=== PATIENT | male | born 1965 | race Caucasian/White ===

== ENCOUNTER 2017-09-20 08:47 | Inpatient (IN) | payer OTHER ==
[2017-09-20 09:37] VITALS: BMI 27.1
--- NOTE | 2017-09-20 12:01 | HP ---
COWS - Scale Resting Pulse: 0= ME 80 or Below Sweatin= Chills/Flushing Restless Observation: 1= Difficult to Sit Still Pupil Size: 1= Pupils >than Normal Bone or Joint Aches: 1= Mild Discomfort Runny Nose/ Eye Tearin= Nasal Congestion GI Upset > 30mins: 2= Nausea/Diarrhea Tremor Observation: 2= Slight Tremor Visible Yawning Observation: 1= 1-2x During Session Anxiety or Irritability: 2=Irritable/Anxious Goose Flesh Skin: 3=Piloerection COWS Score: 15 Admission [facility] Chief Complaint: heroin withdrawal sx Allergies/Adverse Reactions: Allergies Allergy/AdvReac Type Severity Reaction Status Date / Time No Known Allergies Allergy Verified 09/20/17 10:17 History of Present Illness: 51 yo m with h/o opioid use disorder severe, requesting inpateint detoxification from heroin (and street methadone) because of withdrawal sx. no h/o seizures, no DTs, no SI. denies all othere illicit drug use and alcohol. PMHX HTN, asthma, taking medication sas prescrbied, anxiety, depression ad insomnia, HIV+ does not have medication. last took yesterday. reports compliance with teratment thirsty Exam Limitations: No Limitations - Ebola screening Have you traveled outside of the country in the last 21 days: No Have you had contact with anyone from an Ebola affected area: No Have you been sick,other than usual withdrawal symptoms: No - Review of Systems Constitutional: Chills, Diaphoresis, Night Sweats, Changes in sleep, Weight Stable EENT: reports: Tearing, Nose Congestion Respiratory: reports: No Symptoms reported Cardiac: reports: No Symptoms Reported GI: reports: Constipated, Nausea, Poor Appetite, Poor Fluid Intake, Vomiting, Indigestion, Abdominal cramping : reports: No Symptoms Reported Musculoskeletal: reports: No Symptoms Reported Integumentary: reports: Flushing, Sweating Neuro: reports: Numbness, Tingling, Tremors Endocrine: reports: Increased Thirst Hematology: reports: No Symptoms Reported Psychiatric: reports: Judgement Intact, Mood/Affect Appropiate, Orientated x3, Anxious, Depressed, other (omsp,moa) Other Systems: Reviewed and Negative Patient History - Patient Medical History Hx Anemia: No Hx Asthma: Yes (Pt is on MDI for asthma.) Hx Chronic Obstructive Pulmonary Disease (COPD): No Hx Cancer: No Hx Cardiac Disorders: No Hx Congestive Heart Failure: No Hx Hypertension: Yes (on meds.) Hx Hypercholesterolemia: No Hx Pacemaker: No HX Cerebrovascular Accident: No Hx Seizures: No Hx Dementia: No Hx Diabetes: No Hx Gastrointestinal Disorders: No Hx Genitourinary Disorders: No Hx Sexually Transmitted Disorders: No Hx Renal Disease (ESRD): No Hx Depression: No Hx Suicide Attempt: No Hx Schizophrenia: No - Patient Surgical History Past Surgical History: Yes Hx Cholecystectomy: Yes (2013) Anesthesia Reaction: No - PPD History Previous Implant?: Yes Documented Results: Negative w/o proof Implanted On Prior R Admission?: No PPD to be Administered?: Yes - Reproductive History Patient is a Female of Child Bearing Age (11 -55 yrs old): No Patient : No - Smoking Cessation Smoking history: Current every day smoker Have you smoked in the past 12 months: Yes Aproximately how many cigarettes per day: 5 Hx Chewing Tobacco Use: No Initiated information on smoking cessation: Yes 'Breaking Loose' booklet given: 09/20/17 - Substance & Tx. History Hx Alcohol Use: No Hx Substance Use: Yes Substance Use Type: Heroin, Opiates, Prescribed Hx Substance Use Treatment: Yes (last detox [facility] many years ago) - Substances Abused Heroin Route: Inhalation Frequency: Daily Amount used: 20 bags Age of first use: 19 Date of Last Use: 09/19/17 Family Disease History - Family Disease History Family History: Denies Admission Physical Exam BHS - Vital Signs Vital Signs: Vital Signs - 24 hr 09/20/17 09:30 Temperature 96.5 F L Pulse Rate 58 L Respiratory 20 Rate Blood Pressure 131/73 - Physical General Appearance: Yes: Nourished, Appropriately Dressed, Disheveled, Mild Distress, Tremorous, Irritable, Sweating, Anxious HEENTM: Yes: Within Normal Limits, EOMI, Hearing grossly Normal, Normocephalic, Normal Voice, ZOYA, Pharynx Normal, Nasal Congestion, Rhinorrhea Respiratory: Yes: Within Normal Limits, Chest Non-Tender, Lungs Clear, Normal Breath Sounds, No Respiratory Distress, No Accessory Muscle Use Neck: Yes: Within Normal Limits, No masses,lesions,Nodules, Supple, Trachea in good position Breast: Yes: Breast Exam Deferred Cardiology: Yes: Within Normal Limits, Regular Rhythm, Regular Rate, S1, S2 Abdominal: Yes: Within Normal Limits, Normal Bowel Sounds, Non Tender, Flat, Soft, Increased Bowel Sounds Genitourinary: Yes: Within Normal Limits Back: Yes: Within Normal Limits, Normal Inspection Musculoskeletal: Yes: Within Normal Limits, full range of Motion, Gait Steady, Pelvis Stable Extremities: Yes: Within Normal Limits, Normal Capillary Refill, Normal Range of Motion, Non-Tender, Tremors 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 intact, Fully Oriented, Alert, Motor Strength 5/5, Normal Response, Depressed Affect Integumentary: Yes: Normal Color, Warm, Diaphoresis, Moist, Other (poor sking turgor) Lymphatic: Yes: Within Normal Limits - Addiitonal Findings: withdrawal sx, dehydration - Diagnostic (1) Opioid dependence with withdrawal Current Visit: Yes Status: Acute (2) Nicotine dependence Current Visit: Yes Status: Acute (3) Dehydration Current Visit: Yes Status: Acute (4) HIV (human immunodeficiency virus infection) Current Visit: Yes Status: Acute (5) HTN (hypertension) Current Visit: Yes Status: Acute (6) Asthma Current Visit: Yes Status: Acute (7) Insomnia Current Visit: Yes Status: Acute (8) Weight loss Current Visit: Yes Status: Acute Cleared for Admission [facility] - Detox or Rehab [facility] Level of Care: Medically Managed Detox Regimen/Protocol: Methadone [facility] Breath Alcohol Content Breath Alcohol Content: 0 Urine Drug Screen - Results Drug Screen Negative: No Urine Drug Screen Results: OPI-Opiates, MTD-Methadone
[2017-09-20] MEDS ORDERED: ACETAMINOPHEN 325 MG TABLET (FP) PO PRN (12:04)
[2017-09-20] MEDS ORDERED: IBUPROFEN 400 MG TABLET (FP) PO PRN (12:04)
[2017-09-20] MEDS ORDERED: guaiFENesin/D-METHORPHAN HB 10 ML UNIT-DOSE CUPS PO PRN (12:04)
[2017-09-20] MEDS ORDERED: P-EPHED 60MG/TRIPROLIDI 2.5MG TABLET PO PRN (12:04)
[2017-09-20] MEDS ORDERED: hydrOXYzine PAMOATE 50 MG CAPSULE (FP) PO PRN (12:04)
[2017-09-20] MEDS ORDERED: NICOTINE POLACRILEX 2 MG GUM BC PRN (12:04)
[2017-09-20] MEDS ORDERED: MENTHOL/PHENOL 1 EACH UD MM PRN (12:04)
[2017-09-20] MEDS ORDERED: MAG HYDROX/AL HYDROX/SIMETH 30 ML UNIT-DOSE CUP PO PRN (12:04)
[2017-09-20] MEDS ORDERED: MAGNESIUM HYDROX 2400MG/30ML ORAL SUSPENSION 30 ML CUP PO PRN (12:04)
[2017-09-20] MEDS ORDERED: MAGNESIUM CITRATE 300 ML BOTTLE PO PRN (12:04)
[2017-09-20] MEDS ORDERED: ALBUTEROL SO4 18 GM HFA INHALER IH PRN (12:06)
[2017-09-20] MEDS ORDERED: METHADONE HCL 10 MG TABLET (FOR DETOX USE ONLY) PO ONE ×2 (13:00→23:00)
[2017-09-20] MEDS: diazePAM 5 MG TABLET PO PRN (14:08)
[2017-09-20] MEDS: NICOTINE 7 MG/24 HOURS TOPICAL PATCH TD SCH (14:14)
[2017-09-20] MEDS: DOLUTEGRAVIR SODIUM 50 MG TABLET PO SCH (14:52)
[2017-09-20] MEDS: EMTRICITABINE/TENOFOV ALAFENAM (DESCOVY) TABLET PO SCH (14:52)
[2017-09-20] MEDS: NADOLOL 20 MG TABLET (FP) PO SCH (14:53)
--- NOTE | 2017-09-20 15:32 | EKG ---
Test Reason : Blood Pressure : / mmHG Vent. Rate : 054 BPM Atrial Rate : 054 BPM P-R Int : 156 ms QRS Dur : 102 ms QT Int : 462 ms P-R-T Axes : 068 002 015 degrees QTc Int : 438 ms SINUS BRADYCARDIA MINIMAL VOLTAGE CRITERIA FOR LVH, MAY BE NORMAL VARIANT BORDERLINE ECG NO PREVIOUS ECGS AVAILABLE Confirmed by PRESTON LOPES MD ([id number]) on 09/20/2017 3:31:55 PM Referred By: Confirmed By:PRESTON LOPES MD
--- NOTE | 2017-09-20 16:06 | CONSULT ---
[facility] Psychiatric Consult - Data Date of interview: 09/20/17 Admission source: [facility] Identifying data: Patient is a 51 year old single male, father of two, unemployed, receiving food stamps, and currently living with his brother. This is patient's first admission to [facility]. Pt. admitted to for opiate dependence. Substance Abuse History: Following information confirmed with Mr. Orellana: - Smoking Cessation. Smoking history: Current every day smoker. Have you smoked in the past 12 months: Yes. Aproximately how many cigarettes per day: 5. Hx Chewing Tobacco Use: No. Initiated information on smoking cessation: Yes. ' Breaking Loose' booklet given: 09/20/17. - Substance & Tx. History. Hx Alcohol Use: No. Hx Substance Use: Yes. Substance Use Type: Heroin, Opiates, Prescribed. Hx Substance Use Treatment: Yes (last detox [facility] many years ago). - Substances Abused. Heroin. Route: Inhalation. Frequency: Daily. Amount used: 20 bags. Age of first use: 19. Date of Last Use: 09/19/17 Medical History: Asthma, hypertension Psychiatric History: Patient denies h/o psychiatric hospitalizations, outpatient care, and suicide attempts. Physical/Sexual Abuse/Trauma History: Denies. Mental Status Exam - Mental Status Exam Alert and Oriented to: Time, Place, Person Cognitive Function: Good Patient Appearance: Well Groomed Mood: Withdrawn Affect: Mood Congruent Patient Behavior: Fatigued, Cooperative Speech Pattern: Delayed, Slurred Voice Loudness: Moderately Soft/Quiet Thought Process: Goal Oriented Thought Disorder: Not Present Hallucinations: Denies Suicidal Ideation: Denies Homicidal Ideation: Denies Insight/Judgement: Poor Sleep: Fair Appetite: Fair Muscle strength/Tone: Normal Gait/Station: Normal Psychiatric Findings - Problem List ([place] 1, 2,3) (1) Insomnia Current Visit: Yes Status: Acute (2) Nicotine dependence Current Visit: Yes Status: Acute (3) Opioid dependence with withdrawal Current Visit: Yes Status: Acute - Initial Treatment Plan Initial Treatment Plan: Psychoeducation provided. Detoxification in progress. Insomnia will be addressed with Melatonin 5mg. Observation.
[2017-09-20] MEDS: LOPERAMIDE HCL 2 MG CAPSULE PO PRN (18:14)
--- NOTE | 2017-09-20 19:24 | PN ---
S Progress Note Note: Patient with continuos diarrhea, with no relief with immodium. Vital Signs Temperature 97.9 F 09/20/17 14:01 Pulse Rate 63 09/20/17 14:01 Respiratory Rate 18 09/20/17 14:01 Blood Pressure 131/75 09/20/17 14:01 O2 Sat by Pulse Oximetry (%) Plan: Lomotil one dose Increase fluids Continue to monitor
[2017-09-20] MEDS ORDERED: DIPHENOXYLATE 2.5/ATROPINE.025 1 COMBO TABLET PO ONE (19:30)
[2017-09-20 21:59] LABS: URINE APPEARANCE CLEAR; URINE BILIRUBIN NEGATIVE (<2.0 mg/dL); URINE BLOOD 2+ (NEGATIVE); URINE COLOR YELLOW; URINE GLUCOSE (UA) 2+ (NEGATIVE); URINE KETONE NEGATIVE (NEGATIVE); URINE LEUK ESTERASE NEGATIVE (NEGATIVE); URINE NITRITE NEGATIVE (NEGATIVE); URINE UROBILINOGEN 4.0 E.U/dl mg/dL (0.2-1.0)
[2017-09-20 22:00] LABS: URINE PROTEIN 1+ (NEGATIVE)
[2017-09-20 22:04] LABS: URINE MUCUS RARE
[2017-09-20] MEDS: MELATONIN 5 MG TABLETS PO PRN (22:37)
[2017-09-20] MEDS: THIAMINE HCL 100 MG TABLET (FP) PO SCH (22:37)
[2017-09-21] MEDS ORDERED: METHADONE HCL 10 MG TABLET (FOR DETOX USE ONLY) PO ONE (10:00)
[2017-09-21 10:24] LABS: HEMATOCRIT 38.1 % (35.4-49); HEMOGLOBIN 13.4 GM/dL (11.7-16.9); MCH 37.9 pg (25.7-33.7); MCHC 35.1 g/dl (32.0-35.9); MEAN CELL VOLUME 107.8 fl (80-96); MEAN PLT VOLUME 13.2 fl (7.5-11.1); PLATELET COUNT 52 K/MM3 (134-434); RBC 3.53 M/mm3 (4.00-5.60); RDW 15.2 % (11.9-15.9); WHITE BLOOD COUNT 4.9 K/mm3 (4.0-10.0)
[2017-09-21 10:47] LABS: CHLORIDE 112 mmol/L (98-107); POTASSIUM 3.9 mmol/L (3.5-5.1); SODIUM 142 mmol/L (136-145)
[2017-09-21] MEDS: PRENATAL VITAMINS W/ FOLIC ACID TABLET (FP) PO SCH (11:01)
[2017-09-21] MEDS: NICOTINE 7 MG/24 HOURS TOPICAL PATCH TD SCH (11:02)
[2017-09-21] MEDS: NADOLOL 20 MG TABLET (FP) PO SCH (11:02)
[2017-09-21] MEDS: EMTRICITABINE/TENOFOV ALAFENAM (DESCOVY) TABLET PO SCH (11:02)
[2017-09-21] MEDS: DOLUTEGRAVIR SODIUM 50 MG TABLET PO SCH (11:02)
--- NOTE | 2017-09-21 11:15 | PN ---
BHS COWS - Scale Resting Pulse: 0= [place] 80 or Below Sweatin= Chills/Flushing Restless Observation: 3= Extraneous Movement Pupil Size: 1= Pupils >than Normal Bone or Joint Aches: 2= Severe Diffuse Aches Runny Nose/ Eye Tearin= Runny Nose/Eyes GI Upset > 30mins: 3= Vomiting/Diarrhea Tremor Observation of Outstretched Hands: 2= Slight Tremor Visible Yawning Observation: 1= 1-2x During Session Anxiety or Irritability: 2=Irritable/Anxious Goose Flesh Skin: 0=Smooth Skin COWS Score: 17 S Progress Note (SOAP) Subjective: ALERT,IRRITABLE,ANXIOUS,INTERRUPTED SLEEP,TREMOR,PAIN IN THE BODY AND BACK, INTERRUPTED SLEEP Objective: 09/21/17 11:11 Vital Signs Temperature 98.2 F 09/21/17 10:05 Pulse Rate 71 09/21/17 10:05 Respiratory Rate 20 09/21/17 10:05 Blood Pressure 129/65 09/21/17 10:05 O2 Sat by Pulse Oximetry (%) EKG SINUS BRADYCARDIA 54/MIN,LVH NO CHEST PAIN,NO SOB,NO DIZZINESS Laboratory Last Values WBC 4.9 K/mm3 (4.0-10.0) 09/21/17 05:50 RBC 3.53 M/mm3 (4.00-5.60) L 09/21/17 05:50 Hgb 13.4 GM/dL (11.7-16.9) 09/21/17 05:50 Hct 38.1 % (35.4-49) 09/21/17 05:50 MCV 107.8 fl (80-96) H 09/21/17 05:50 MCH 37.9 pg (25.7-33.7) H 09/21/17 05:50 MCHC 35.1 g/dl (32.0-35.9) 09/21/17 05:50 RDW 15.2 % (11.9-15.9) 09/21/17 05:50 Plt Count 52 K/MM3 (134-434) L 09/21/17 05:50 MPV 13.2 fl (7.5-11.1) H 09/21/17 05:50 Urine Color Yellow 09/20/17 21:11 Urine Appearance Clear 09/20/17 21:11 Urine pH 7.0 (5.0-8.0) 09/20/17 21:11 Ur Specific [place] 1.019 (1.001-1.035) 09/20/17 21:11 Urine Protein 1+ (NEGATIVE) H 09/20/17 21:11 Urine Glucose (UA) 2+ (NEGATIVE) H 09/20/17 21:11 Urine Ketones Negative (NEGATIVE) 09/20/17 21:11 Urine Blood 2+ (NEGATIVE) H 09/20/17 21:11 Urine Nitrite Negative (NEGATIVE) 09/20/17 21:11 Urine Bilirubin Negative (<2.0 mg/dL) 09/20/17 21:11 Urine Urobilinogen 4.0 e.u/dl mg/dL (0.2-1.0) 09/20/17 21:11 Ur Leukocyte Esterase Negative (NEGATIVE) 09/20/17 21:11 Urine WBC (Auto) 2 /hpf (3-5) 09/20/17 21:11 Urine RBC (Auto) 34 /hpf (0-3) 09/20/17 21:11 Urine Mucus Rare 09/20/17 21:11 LABS PENDING Assessment: 09/21/17 11:15 WITHDRAWAL SYMPTOM Plan: CONTINUE DETOX,REPEAT UA TODAY,ENCOURAGE ORAL FLUID
[2017-09-21 11:18] LABS: ALBUMIN 3.2 g/dl (3.4-5.0); ALK PHOS 115 U/L (45-117); ANION GAP 5 (8-16); BILIRUBIN,TOTAL 2.1 mg/dL (0.2-1.0); BLOOD UREA NITROGEN 15 mg/dL (7-18); CALCIUM 8.5 mg/dL (8.5-10.1); CO2 25 mmol/L (21-32); CREATININE 1.1 mg/dL (0.7-1.3); GLUCOSE,RANDOM 54 mg/dL (74-106); SGOT/AST 38 U/L (15-37); SGPT/ALT 30 U/L (12-78); TOT PROT 8.1 g/dl (6.4-8.2)
[2017-09-21] MEDS: LOPERAMIDE HCL 2 MG CAPSULE PO PRN (17:20)
[2017-09-21] MEDS: THIAMINE HCL 100 MG TABLET (FP) PO SCH (22:59)
[2017-09-22] MEDS: LOPERAMIDE HCL 2 MG CAPSULE PO PRN ×2 (07:06→13:02)
[2017-09-22] MEDS ORDERED: METHADONE HCL 5 MG TABLET (FOR DETOX USE ONLY) PO ONE (10:00)
[2017-09-22] MEDS: PRENATAL VITAMINS W/ FOLIC ACID TABLET (FP) PO SCH (10:20)
[2017-09-22] MEDS: NADOLOL 20 MG TABLET (FP) PO SCH (10:21)
[2017-09-22] MEDS: diazePAM 5 MG TABLET PO PRN ×3 (10:21→22:27)
[2017-09-22] MEDS: EMTRICITABINE/TENOFOV ALAFENAM (DESCOVY) TABLET PO SCH (10:23)
[2017-09-22] MEDS: NICOTINE 7 MG/24 HOURS TOPICAL PATCH TD SCH (10:23)
[2017-09-22] MEDS: DOLUTEGRAVIR SODIUM 50 MG TABLET PO SCH (10:23)
--- NOTE | 2017-09-22 11:39 | PN ---
BHS COWS - Scale Resting Pulse: 0= [place] 80 or Below Sweatin= Chills/Flushing Restless Observation: 3= Extraneous Movement Pupil Size: 1= Pupils >than Normal Bone or Joint Aches: 2= Severe Diffuse Aches Runny Nose/ Eye Tearin= Runny Nose/Eyes GI Upset > 30mins: 2= Nausea/Diarrhea Tremor Observation of Outstretched Hands: 2= Slight Tremor Visible Yawning Observation: 1= 1-2x During Session Anxiety or Irritability: 2=Irritable/Anxious Goose Flesh Skin: 0=Smooth Skin COWS Score: 16 S Progress Note (SOAP) Subjective: ALERT,IRRITABLE,ANXIOUS,INTERRUPTED SLEP,TREMOR,PAIN IN THE BODY Objective: 09/22/17 11:37 Vital Signs Temperature 98.2 F 09/22/17 10:00 Pulse Rate 66 09/22/17 10:00 Respiratory Rate 18 09/22/17 10:00 Blood Pressure 150/75 09/22/17 10:00 O2 Sat by Pulse Oximetry (%) 09/22/17 11:38 Laboratory Last Values WBC 4.9 K/mm3 (4.0-10.0) 09/21/17 05:50 RBC 3.53 M/mm3 (4.00-5.60) L 09/21/17 05:50 Hgb 13.4 GM/dL (11.7-16.9) 09/21/17 05:50 Hct 38.1 % (35.4-49) 09/21/17 05:50 MCV 107.8 fl (80-96) H 09/21/17 05:50 MCH 37.9 pg (25.7-33.7) H 09/21/17 05:50 MCHC 35.1 g/dl (32.0-35.9) 09/21/17 05:50 RDW 15.2 % (11.9-15.9) 09/21/17 05:50 Plt Count 52 K/MM3 (134-434) L 09/21/17 05:50 MPV 13.2 fl (7.5-11.1) H 09/21/17 05:50 Sodium 142 mmol/L (136-145) 09/21/17 05:50 Potassium 3.9 mmol/L (3.5-5.1) 09/21/17 05:50 Chloride 112 mmol/L (98-107) H 09/21/17 05:50 Carbon Dioxide 25 mmol/L (21-32) 09/21/17 05:50 Anion Gap 5 (8-16) L 09/21/17 05:50 BUN 15 mg/dL (7-18) 09/21/17 05:50 Creatinine 1.1 mg/dL (0.7-1.3) 09/21/17 05:50 Creat Clearance w eGFR > 60 (>60) 09/21/17 05:50 Random Glucose 54 mg/dL (74-106) L 09/21/17 05:50 Calcium 8.5 mg/dL (8.5-10.1) 09/21/17 05:50 Total Bilirubin 2.1 mg/dL (0.2-1.0) H 09/21/17 05:50 AST 38 U/L (15-37) H 09/21/17 05:50 ALT 30 U/L (12-78) 09/21/17 05:50 Alkaline Phosphatase 115 U/L (45-117) 09/21/17 05:50 Total Protein 8.1 g/dl (6.4-8.2) 09/21/17 05:50 Albumin 3.2 g/dl (3.4-5.0) L 09/21/17 05:50 Urine Color Yellow 09/20/17 21:11 Urine Appearance Clear 09/20/17 21:11 Urine pH 7.0 (5.0-8.0) 09/20/17 21:11 Ur Specific [place] 1.019 (1.001-1.035) 09/20/17 21:11 Urine Protein 1+ (NEGATIVE) H 09/20/17 21:11 Urine Glucose (UA) 2+ (NEGATIVE) H 09/20/17 21:11 Urine Ketones Negative (NEGATIVE) 09/20/17 21:11 Urine Blood 2+ (NEGATIVE) H 09/20/17 21:11 Urine Nitrite Negative (NEGATIVE) 09/20/17 21:11 Urine Bilirubin Negative (<2.0 mg/dL) 09/20/17 21:11 Urine Urobilinogen 4.0 e.u/dl mg/dL (0.2-1.0) 04/25/18 21:11 Ur Leukocyte Esterase Negative (NEGATIVE) 09/20/17 21:11 Urine WBC (Auto) 2 /hpf (3-5) 09/20/17 21:11 Urine RBC (Auto) 34 /hpf (0-3) 09/20/17 21:11 Urine Mucus Rare 09/20/17 21:11 RPR Titer Nonreactive (NONREACTIVE) 09/21/17 05:50 Assessment: 09/22/17 11:38 WITHDRAWAL SYMPTOM Plan: CONTINUE DETOX,ORAL FLUID,REPEAT UA
[2017-09-22] MEDS ORDERED: DIPHENOXYLATE 2.5/ATROPINE.025 1 COMBO TABLET PO ONE (16:45)
[2017-09-22] MEDS: THIAMINE HCL 100 MG TABLET (FP) PO SCH (22:27)
[2017-09-23] MEDS: LOPERAMIDE HCL 2 MG CAPSULE PO PRN (06:19)
[2017-09-23] MEDS ORDERED: METHADONE HCL 5 MG TABLET (FOR DETOX USE ONLY) PO ONE (10:00)
[2017-09-23] MEDS: diazePAM 5 MG TABLET PO PRN (10:46)
[2017-09-23] MEDS: PRENATAL VITAMINS W/ FOLIC ACID TABLET (FP) PO SCH (10:46)
[2017-09-23] MEDS: NADOLOL 20 MG TABLET (FP) PO SCH (10:47)
[2017-09-23] MEDS: NICOTINE 7 MG/24 HOURS TOPICAL PATCH TD SCH (10:47)
[2017-09-23] MEDS: EMTRICITABINE/TENOFOV ALAFENAM (DESCOVY) TABLET PO SCH (10:48)
[2017-09-23] MEDS: DOLUTEGRAVIR SODIUM 50 MG TABLET PO SCH (10:50)
--- NOTE | 2017-09-23 12:13 | PN ---
BHS Progress Note (SOAP) Subjective: ALERT,IRRITABLE,ANXIOUS,INTERRUPTED SLEEP,PAIN IN THE BODY Objective: 09/23/17 12:13 Vital Signs Temperature 98.1 F 09/23/17 10:00 Pulse Rate 71 09/23/17 10:00 Respiratory Rate 18 09/23/17 10:00 Blood Pressure 150/75 09/23/17 10:00 O2 Sat by Pulse Oximetry (%) Assessment: 09/23/17 12:13 WITHDRAWAL SYMPTOM Plan: CONTINUE DETOX
--- NOTE | 2017-09-23 12:50 | PN ---
S Progress Note Note: DIARRHEA,LOMOTIL 1 TAB PO NOW THEN Q 8 HR,HUSSEIN DIET,CLOSE MONITORING
--- NOTE | 2017-09-23 12:58 | PN ---
BHS Progress Note Note: ON HUSSEIN DIET,STOOL FOR C DIFF
[2017-09-23] MEDS ORDERED: DIPHENOXYLATE 2.5/ATROPINE.025 1 COMBO TABLET PO ONE (13:30)
[2017-09-23] MEDS: DIPHENOXYLATE 2.5/ATROPINE.025 1 COMBO TABLET PO PRN (18:52)
[2017-09-23] MEDS: THIAMINE HCL 100 MG TABLET (FP) PO SCH (23:20)
[2017-09-23] MEDS: MELATONIN 5 MG TABLETS PO PRN (23:20)
[2017-09-24] MEDS: DIPHENOXYLATE 2.5/ATROPINE.025 1 COMBO TABLET PO PRN (04:32)
[2017-09-24] MEDS: DOLUTEGRAVIR SODIUM 50 MG TABLET PO SCH (09:51)
[2017-09-24] MEDS: NADOLOL 20 MG TABLET (FP) PO SCH (09:52)
[2017-09-24] MEDS: EMTRICITABINE/TENOFOV ALAFENAM (DESCOVY) TABLET PO SCH (09:53)
[2017-09-24] MEDS: PRENATAL VITAMINS W/ FOLIC ACID TABLET (FP) PO SCH (09:54)
[2017-09-24] MEDS: NICOTINE 7 MG/24 HOURS TOPICAL PATCH TD SCH (09:54)
[2017-09-24] MEDS ORDERED: METHADONE HCL 10 MG TABLET (FOR DETOX USE ONLY) PO ONE (10:00)
--- NOTE | 2017-09-24 10:40 | PN ---
BHS Progress Note (SOAP) Subjective: diarrhea sweats Objective: 09/24/17 10:35 Vital Signs Temperature 97.7 F 09/24/17 07:13 Pulse Rate 56 L 09/24/17 07:13 Respiratory Rate 18 09/24/17 07:13 Blood Pressure 122/66 09/24/17 07:13 O2 Sat by Pulse Oximetry (%) [id number] ambulating no acute distress Assessment: 09/24/17 10:38 withdrawal sx Plan: continue detox increase fluids continue lotomoil pending pt to give us stool sample to check for c-diff
[2017-09-24] MEDS: metroNIDAZOLE 250 MG TABLET PO SCH ×2 (13:38→22:27)
[2017-09-24] MEDS: DIPHENOXYLATE 2.5/ATROPINE.025 1 COMBO TABLET PO SCH ×2 (13:38→22:27)
[2017-09-24 13:39] LABS: URINE APPEARANCE SLCLOUDY; URINE BILIRUBIN NEGATIVE (<2.0 mg/dL); URINE BLOOD NEGATIVE (NEGATIVE); URINE COLOR DKYELLOW; URINE GLUCOSE (UA) 1+ (NEGATIVE); URINE KETONE NEGATIVE (NEGATIVE); URINE LEUK ESTERASE NEGATIVE (NEGATIVE); URINE NITRITE NEGATIVE (NEGATIVE); URINE PROTEIN 1+ (NEGATIVE); URINE UROBILINOGEN 4.0 E.U/dl mg/dL (0.2-1.0)
[2017-09-24 13:46] LABS: CALCIUM OXALATE CRYSTALS FEW /hpf (NONE SEEN); URINE MUCUS RARE
[2017-09-24] MEDS: THIAMINE HCL 100 MG TABLET (FP) PO SCH (22:27)
[2017-09-24] MEDS: MELATONIN 5 MG TABLETS PO PRN (22:27)
[2017-09-25] MEDS: metroNIDAZOLE 250 MG TABLET PO SCH (05:24)
[2017-09-25] MEDS ORDERED: METHADONE HCL 5 MG TABLET (FOR DETOX USE ONLY) PO ONE (06:00)
[2017-09-25 06:10] VITALS: BP 108/54; PULSE 54; TEMP 97.7
[2017-09-25] MEDS: DIPHENOXYLATE 2.5/ATROPINE.025 1 COMBO TABLET PO SCH ×2 (06:50→07:15)
--- NOTE | 2017-09-25 09:03 | PN ---
S Progress Note (SOAP) Subjective: ALERT,NO COMPLAINT,DIARRHEA,STOOL FOR C DIFF HAS BEEN ORDERED BUT PATIENT DID NOT WANT THE TEST, STATED HE FEEL MUCH BETTER,NO COMPLIANT,HE WILL FOLLOW UP WITH HIS OWN PMD Objective: 09/25/17 09:01 Vital Signs Temperature 97.7 F 09/25/17 06:08 Pulse Rate 54 L 09/25/17 06:08 Respiratory Rate 18 09/25/17 06:08 Blood Pressure 108/54 09/25/17 06:08 O2 Sat by Pulse Oximetry (%) Assessment: 09/25/17 09:02 DETOX COMPLETED,NO WITHDRAWAL SYMPTOM Plan: DISCHARGE TODAY,FOLLOW UP WITH AFTER CARE PROGRAM ARRANGEMENT
--- NOTE | 2017-09-25 09:09 | DS ---
[facility] Detox Discharge Summary Admission Date: 09/20/17 Discharge Date: 09/25/17 - History Present History: Opioid Dependence Additional Comments: FOLLOW UP WITH AFTER CARE PROGRAM ARRANGEMENT AND FAMILY DOCTOR FOR FOLLOW UP PATIENT HAS MEDICATIONS AT HOME Pertinent Past History: HIV HYPERTENSION ASTHMA WEIGHT LOSS DEHYDRATION NICOTINE DEPENDENCE - Physical Exam Results Vital Signs: Vital Signs Temperature 97.7 F 09/25/17 06:08 Pulse Rate 54 L 09/25/17 06:08 Respiratory Rate 18 09/25/17 06:08 Blood Pressure 108/54 09/25/17 06:08 O2 Sat by Pulse Oximetry (%) Pertinent Admission Physical Exam Findings: WITHDRAWAL SIGNS AND SYMPTOM Vital Signs Temperature 97.7 F 09/25/17 06:08 Pulse Rate 54 L 09/25/17 06:08 Respiratory Rate 18 09/25/17 06:08 Blood Pressure 108/54 09/25/17 06:08 O2 Sat by Pulse Oximetry (%) Laboratory Last Values WBC 4.9 K/mm3 (4.0-10.0) 09/21/17 05:50 RBC 3.53 M/mm3 (4.00-5.60) L 09/21/17 05:50 Hgb 13.4 GM/dL (11.7-16.9) 09/21/17 05:50 Hct 38.1 % (35.4-49) 09/21/17 05:50 MCV 107.8 fl (80-96) H 09/21/17 05:50 MCH 37.9 pg (25.7-33.7) H 09/21/17 05:50 MCHC 35.1 g/dl (32.0-35.9) 09/21/17 05:50 RDW 15.2 % (11.9-15.9) 09/21/17 05:50 Plt Count 52 K/MM3 (134-434) L 09/21/17 05:50 MPV 13.2 fl (7.5-11.1) H 09/21/17 05:50 Sodium 142 mmol/L (136-145) 09/21/17 05:50 Potassium 3.9 mmol/L (3.5-5.1) 09/21/17 05:50 Chloride 112 mmol/L (98-107) H 09/21/17 05:50 Carbon Dioxide 25 mmol/L (21-32) 09/21/17 05:50 Anion Gap 5 (8-16) L 09/21/17 05:50 BUN 15 mg/dL (7-18) 09/21/17 05:50 Creatinine 1.1 mg/dL (0.7-1.3) 09/21/17 05:50 Creat Clearance w eGFR > 60 (>60) 09/21/17 05:50 Random Glucose 54 mg/dL (74-106) L 09/21/17 05:50 Calcium 8.5 mg/dL (8.5-10.1) 09/21/17 05:50 Total Bilirubin 2.1 mg/dL (0.2-1.0) H 09/21/17 05:50 AST 38 U/L (15-37) H 09/21/17 05:50 ALT 30 U/L (12-78) 09/21/17 05:50 Alkaline Phosphatase 115 U/L (45-117) 09/21/17 05:50 Total Protein 8.1 g/dl (6.4-8.2) 09/21/17 05:50 Albumin 3.2 g/dl (3.4-5.0) L 09/21/17 05:50 Urine Color Dkyellow 09/24/17 08:15 Urine Appearance Slcloudy 09/24/17 08:15 Urine pH 7.0 (5.0-8.0) 09/24/17 08:15 Ur Specific [place] 1.019 (1.001-1.035) 09/24/17 08:15 Urine Protein 1+ (NEGATIVE) H 09/24/17 08:15 Urine Glucose (UA) 1+ (NEGATIVE) H 09/24/17 08:15 Urine Ketones Negative (NEGATIVE) 09/24/17 08:15 Urine Blood Negative (NEGATIVE) 09/24/17 08:15 Urine Nitrite Negative (NEGATIVE) 09/24/17 08:15 Urine Bilirubin Negative (<2.0 mg/dL) 09/24/17 08:15 Urine Urobilinogen 4.0 e.u/dl mg/dL (0.2-1.0) 09/24/17 08:15 Ur Leukocyte Esterase Negative (NEGATIVE) 09/24/17 08:15 Urine WBC (Auto) 1 /hpf (3-5) 09/24/17 08:15 Urine RBC (Auto) 7 /hpf (0-3) 09/24/17 08:15 Calcium Oxalate Crystal Few /hpf (NONE SEEN) 09/24/17 08:15 Urine Mucus Rare 09/24/17 08:15 RPR Titer Nonreactive (NONREACTIVE) 09/21/17 05:50 - Treatment Hospital Course: Detox Protocol Followed, Detoxed Safely, Responded well, Discharged Condition Good Patient has Accepted a Rehab Referral to: DECLINED - Medication Discharge Medications: Ambulatory Orders Albuterol Sulfate Inhaler - [Ventolin Hfa Inhaler -] 2 inh PO Q4H PRN 09/20/17 Dolutegravir Sodium [Tivicay] 50 mg PO DAILY 09/20/17 Emtricitabine/Tenofov Alafenam [Descovy 200-25 mg Tablet (Nf)] 1 each PO DAILY 09/20/17 Nadolol [Corgard -] 20 mg PO DAILY 09/20/17 - Diagnosis (1) Opioid dependence with withdrawal Current Visit: Yes Status: Chronic (2) Asthma Current Visit: Yes Status: Chronic Qualifiers: Asthma severity: mild (3) Dehydration Current Visit: Yes Status: Chronic (4) HIV (human immunodeficiency virus infection) Current Visit: Yes Status: Chronic (5) HTN (hypertension) Current Visit: Yes Status: Chronic (6) Insomnia Current Visit: Yes Status: Chronic (7) Weight loss Current Visit: Yes Status: Acute (8) Diarrhea Current Visit: Yes Status: Acute - AMA Did Patient Leave Against Medical Advice: No
[2017-09-25 09:53] LABS: URINE APPEARANCE CLEAR; URINE BILIRUBIN NEGATIVE (<2.0 mg/dL); URINE BLOOD 1+ (NEGATIVE); URINE COLOR YELLOW; URINE GLUCOSE (UA) 1+ (NEGATIVE); URINE KETONE NEGATIVE (NEGATIVE); URINE LEUK ESTERASE NEGATIVE (NEGATIVE); URINE NITRITE NEGATIVE (NEGATIVE); URINE PROTEIN NEGATIVE (NEGATIVE); URINE UROBILINOGEN 4.0 E.U/dl mg/dL (0.2-1.0)
[2017-09-25 10:31] LABS: EPI CELLS RARE /HPF (FEW); URINE MUCUS RARE
== END 2017-09-25 09:17 | disposition home or self-care (01) | DRG 897 ==
LOC: YASAS 08:47 → Y6N 12:32
PROVIDERS: ADMIT Internal Medicine; ATTEND Internal Medicine
PROC: HZ2ZZZZ Detoxification Services for Substance Abuse Treatment (ICD-10-PCS; principal; 2017-09-20)
DX: F11.23 Opioid dependence with withdrawal (principal); F17.210 Nicotine dependence, cigarettes, uncomplicated; J45.20 Mild intermittent asthma, uncomplicated; I10 Essential (primary) hypertension; E86.0 Dehydration; G47.00 Insomnia, unspecified; R63.4 Abnormal weight loss; Z68.27 Body mass index [BMI] 27.0-27.9, adult; R19.7 Diarrhea, unspecified; Z21 Asymptomatic human immunodeficiency virus [HIV] infection status
CPT/HCPCS: 36415; 80053; 81003; 81015; 85027; 86593; 93005; 93010